=== PATIENT | female | born 1955 | race Caucasian/White ===

== ENCOUNTER 2019-05-02 06:05 | Emergency (ER) | payer MEDICARE, SELFPAY ==
[2019-05-02 06:10] VITALS: BP 160/81; PULSE 80; RESP 17; TEMP 36.4; O2SAT 98; BMI 39.9
--- NOTE | 2019-05-02 06:16 | ED.BACK ---
HPI - Back Pain/Injury General Chief Complaint: Extremity Injury, Lower Stated Complaint: bad sciatic pain down left leg cant sit, stand Time Seen by Provider: 05/02/19 06:15 Source: patient and family () Mode of arrival: Ambulatory Limitations: no limitations History of Present Illness HPI Narrative: This is a 63-year-old female comes to the emergency department with complaint of sciatica. Patient states that she has had sciatic in the past she has had about a week of symptoms that have been worsening but the last 24 hours have been significantly worse than her typical. She states particularly painful in the dimple for buttock on the left and radiating down her leg although the pain decreases as it transmits down her leg. She has occasionally had some numbness and tingling she denies any weakness. She denies any numbness or tingling currently. No loss of bowel or bladder control. She states she does have some thoracic back pain typically and some lower back pain but this is more in the buttock region. Patient states painful to sit on that area and movement is painful as well. She has not had any fevers or chills. She denies any chest pain shortness of breath, no nausea or vomiting. Patient denies any loss of bowel or bladder control. She tried an aspirin around midnight and some topical CBD cream. Patient states this has not been helpful. She states she has been on steroids in the past but would prefer to avoid them as ?everyone she knows turns into diabetics when they are on them.? She took omeprazole for GERD, denies any other medications. Denies any prior back surgeries. She states codeine makes her sick. She does have a primary care physician but forgets her name. She is accompanied by her . Related Data Previous Rx's Medication Instructions Recorded diazepam [Valium] 10 mg PO TID PRN 1 Days #14 tab 05/02/19 meloxicam [Mobic] 7.5 mg PO BID PRN #10 tab 05/02/19 oxycodone-acetaminophen [Percocet] 1 tab PO Q6H PRN #7 tab 05/02/19 Allergies Allergy/AdvReac Type Severity Reaction Status Date / Time codeine AdvReac Verified 05/02/19 06:14 Review of Systems Review of Systems ROS Unobtainable: All systems reviewed & are unremarkable except as noted in HPI and below Patient History Social History Smoking Status: Never smoker Exam Narrative Exam Narrative: GENERAL: Alert and oriented x three, obese, well-appearing elderly female in moderate distress HEENT: Head normocephalic, atraumatic, EOMI, pupils reactive, face symmetric, moist mucous membranes NECK: Supple, full range of motion CARDIOVASCULAR: Regular rate and rhythm without murmurs, rubs or gallops. RESPIRATORY: Breath sounds equal bilaterally, no wheezes rales or rhonchi. ABDOMEN: Soft, nontender. Normoactive bowel sounds all 4 quadrants. No guarding or rebound, rigidity, no mass : No CVA tenderness BACK: No cervical, thoracic or lumbar vertebral point tenderness. Patient is tender in the left piriformis region in particular. Patient has decreased range of motion. Patient's gait is antalgic. Rectal exam is deferred. Muscle strength is 5/5 in lower extremities, DTRs are 2/4 and lower extremities. Dorsalis pedis and tibialis pulses are 2+ and lower extremities. Sensation is intact in the lower extremities. Patient has increased discomfort with flexion of the hip. EXTREMITIES: Normal range of motion, no clubbing or edema. Neurovascularly intact NEUROLOGICAL: Cranial nerves II through XII grossly intact. Moving all extremities SKIN: Warm, dry, no petechiae, no rashes or lesions. Initial Vital Signs Initial Vital Signs: Vital Signs Temperature 97.6 F 05/02/19 06:10 Pulse Rate 80 05/02/19 06:10 Respiratory Rate 17 05/02/19 06:10 Blood Pressure 160/81 H 05/02/19 06:10 Pulse Oximetry 98 05/02/19 06:10 Course Orders Ordered: Discontinued Medications Diazepam (Valium) 10 mg PO NOW ONE Stop: 05/02/19 06:25 Last Admin: 05/02/19 06:34 Dose: 10 mg Documented by: MMCFARL Ketorolac Tromethamine (Toradol) 30 mg IM NOW ONE Stop: 05/02/19 06:25 Last Admin: 05/02/19 06:33 Dose: 30 mg Documented by: MMCFARL Oxycodone/Acetaminophen (Percocet 5/325) 1 tab PO NOW ONE Stop: 05/02/19 07:07 Last Admin: 05/02/19 07:39 Dose: 1 tab Documented by: RSTONE Vital Signs Vital signs: Vital Signs - 8 hr 05/02/19 06:10 Temperature 97.6 F Pulse Rate 80 Respiratory Rate 17 Blood Pressure 160/81 H Pulse Oximetry 98 MDM - Back Pain/Injury MDM Narrative Medical decision making narrative: Patient states she has had chronic ongoing issues and she has had imaging of her spine in the past which was told that she had arthritic changes and would likely develop worsening symptoms over time. Was given Toradol and Valium and on recheck patient was asleep. Has improvement but still fairly uncomfortable with movement. Patient given percocet po. Discussed would likely benefit from steroids but patient defers. Discharge Plan Departure Patient Disposition: Home Clinical Impression: Sciatica Qualifiers: Laterality: left Qualified Code(s): M54.32 - Sciatica, left side Discharge Date/Time: 05/02/19 08:04 Instructions: DI for Sciatica Activity Restrictions/Additional Instructions: Follow-up with your physician in the next week for recheck and possibly additional imaging. Take pain medication as prescribed, this medication can make you sleepy do not drive, perform hazardous activities or make any major decisions while taking it. Return to the ER for fevers greater 100.4 F, rapidly worsening back pain, loss of bowel or bladder control, new weakness, numbness or inability to lift or move her leg or other new or concerning symptoms. Prescriptions: New diazepam [Valium] 10 mg tablet 10 mg PO TID PRN (Reason: muscle spasm) 1 Days Qty: 14 RF: 0 oxycodone-acetaminophen [Percocet] 5-325 mg tablet 1 tab PO Q6H PRN (Reason: pain) Qty: 7 RF: 0 meloxicam [Mobic] 7.5 mg tablet 7.5 mg PO BID PRN (Reason: pain) Qty: 10 RF: 0 Referrals: Tom Simpson MD [Primary Care Provider] -
[2019-05-02] MEDS: KETOROLAC 60 MG/2 ML VIAL 30 MG IM (06:33)
[2019-05-02] MEDS: diazePAM 5 MG TABLET 10 MG PO (06:34)
[2019-05-02] MEDS: OXYCODONE/ACETAMINOPHEN 5/325 TABLET 1 TAB PO (07:39)
[2019-05-02 07:50] VITALS: BP 138/73; PULSE 71; RESP 17; O2SAT 100
== END 2019-05-02 08:04 | disposition home or self-care (01) ==
PROVIDERS: Emergency Provider Emergency Medicine; Family Provider Family Medicine; PCP Family Medicine
DX: M54.32 Sciatica, left side (principal)
CPT/HCPCS: 96372; 99283; J1885

== ENCOUNTER → 2019-07-10 10:10 | Outpatient (CLI) | payer MEDICARE, SELFPAY ==
--- NOTE | 2019-07-10 10:17 | DI.RAD.S_ITS ---
PROCEDURE: XR LUMBAR SPINE 2-3V INDICATIONS: Back Pain TECHNIQUE: 3 views of the lumbar spine were acquired. COMPARISON: None. FINDINGS: Bones: 5 [id number] vertebrae are present. There is trace L1-L2 and L2-L3 retrolisthesis. No vertebral body compression fractures. No suspicious bony lesions. Mild L1-L2, L2-L3, L3-L4, L4-L5 and L5-S1 degenerative disc disease. Mild L4-L5 and L5-S1 facet arthropathy. Soft tissues: Overlying bowel gas pattern is normal. No suspicious soft tissue calcifications. IMPRESSION: 1. Multilevel degenerative disease. 2. Multilevel facet arthropathy. 3. No fracture. No acute osseous lesion. If symptoms and/or clinical suspicion for pathology persists, evaluation with MRI may be helpful for further assessment. Dictated by: Ines Muniz MD, PhD on 07/10/2019 at 11:18 Approved by: Ines Muniz MD, PhD on 07/10/2019 at 11:19
== END ==
PROVIDERS: Family Provider Family Medicine; PCP Family Medicine; Referring Provider Family Medicine; Visit Provider Family Medicine
DX: M54.9 Dorsalgia, unspecified (principal); M51.36 Other intervertebral disc degeneration, lumbar region; M51.37 Other intervertebral disc degeneration, lumbosacral region; M47.816 Spondylosis without myelopathy or radiculopathy, lumbar region; M47.817 Spondylosis without myelopathy or radiculopathy, lumbosacral region; G89.29 Other chronic pain
CPT/HCPCS: 72100

== ENCOUNTER 2019-09-21 13:00 | Outpatient (RCR) | payer MEDICARE, SELFPAY ==
--- NOTE | 2019-09-02 14:09 | PT.OIE ---
Current Diagnoses Lumbago with sciatica, unspecified side (09/02/19) Past Medical History (Last Reviewed 07/14/19 @ 12:35 by Georges Riley DO) Anemia (Inactive ~2004) Ankle pain (Inactive ~1973) Chicken pox (Resolved) Chronic back pain (Chronic ~1979) Gastric ulcer (Acute) Hearing loss (Chronic ~1999) Knee pain (Chronic) Measles (Resolved) Mumps (Resolved) Peptic ulcer disease (Acute) Shoulder pain (Inactive ~1989) Vision disorder (Chronic) Past Surgical History (Last Updated 05/24/19 @ 18:33 by Haven Corona) Anesthesia (Resolved) History of oral surgery (Resolved) History of tonsillectomy (Resolved ~1960) History of tubal ligation (Resolved ~1978) Visit Care Team Role Provider Type Georges Riley DO Attending Provider Physician Primary Care Provider Referring Provider Specialty: Family Practice Address: [address] [place] [address] Email: [email or web address] Physical Therapy Initial Evaluation PT-OP-A Visit Information Start: 09/01/19 14:07 Freq: Status: Active Protocol: Document 09/02/19 12:18 MB (Rec: 09/02/19 12:39 MB [id number]) Out-Patient Physical Therapy Visit Information Visit Information Visit Type Initial Evaluation Visit Note [employer] HMD Medicare Advantage Visit Start Time 12:18 Visit Stop Time 13:00 Total Visit Minutes 42 Visit Number 1 Evaluation Information Evaluation Date 09/02/19 PT-OP-B Current Condition Start: 09/01/19 14:07 Freq: Status: Active Protocol: Document 09/02/19 12:18 MB (Rec: 09/02/19 12:39 MB [id number]) Current Condition History of Current Condition Onset Date 05/01/2019 Current Complaints Numbness down the back of her left leg from SI are to foot History of Current Condition On 05/01/2019, pt had severe pain in her left LB and SI area and down the back of her left leg to foot. Pt states that she now does not have a lot of pain but now has numbness in the same area . Pt states that she walks funnier. She is back to gardening. She feels like she needs to be more active. Pt reports history of pain all over. Pt reports 1-2/10 pain in B knees anterior. lateral and posterior areas, left scapula, down the back of the left leg. Pt reports that she worked on her feet on cement in a [employer] and fell off horses in the past. Pt states that she picked up the front of her 's truck in April to help get the truck in the right place and then went to sit at a movie for 2.5 hours. The next day, she had a lot of pain. She had a similar event last year that eventually got better. Her dog has occ run into her left knee. Prior Treatments and Tests X-ray lumbar spine 07/10/2019: mild DDD, no fracture, multilevel facet arthropathy MRI 07/31/2019 of lumbar spine reflected similar findings per pt Treatment Goals Patient/Caregiver Goals Pt would like to keep not hurting. She would like to build up strength. She would like the numbness to go away. PT-OP-C Subjective Start: 09/01/19 14:07 Freq: Status: Active Protocol: Document 09/02/19 12:18 MB (Rec: 09/02/19 12:39 MB [id number]) OP-PT Subjective Patient Comments Patient Comments See history of current condition. Patient Questionnaires Oswestry Low Back Index Oswestry Score 12 Oswestry Impairment 20 to 39% Impaired (Score 20- 39) PT-OP-D Balance Start: 09/01/19 14:07 Freq: Status: Active Protocol: Document 09/02/19 12:18 MB (Rec: 09/02/19 14:09 MB [id number]) OP-PT Balance Assessment Sitting Balance Static Sitting Balance Ability Normal Dynamic Sitting Balance Ability Fair Sitting Balance Comments Heavy UE support when PT places pt's foot over PT's knee for proprioception testing Standing Balance Static Standing Balance Ability Normal Dynamic Standing Balance Ability Fair Standing Balance Comments Romberg EO and EC 30 sec; B SLS 5 sec Srinivasan Fall Scale Copyright Permission PT-OP-J Posture/Palpation/Skin Start: 09/01/19 14:07 Freq: Status: Active Protocol: Document 09/02/19 12:18 MB (Rec: 09/02/19 14:09 MB [id number]) Posture Evaluation Comments Posture Comments Standing posture: increased soft tissue, B LEs edematous, Dowager's hump, decreased thoracic kyphosis, increased lumbar lordosis, anterior tilt pelvis, L anterior shoulder with protracted and elevated left scapula, right iliac crest higher than the left, supinated rear foot on the right with pes planus midfoot, more arch left foot than the right. Pt reports that her left heel is completely numb. Skin Assessment Other Assessments Skin Assessment Comments B LEs edematous, left is shinier and pinker than the right. No pain with squeezing left calf and the left leg is not warmer than the right. All toes normal proprioception with testing. Numbness left leg following sciatic nerve pattern--L5-S1. PT-OP-L Special Tests Start: 09/01/19 14:07 Freq: Status: Active Protocol: Document 09/02/19 12:18 MB (Rec: 09/02/19 14:09 MB [id number]) Special Tests Lumbar Spine Special Tests Slump Comments Deferred in setting of known sciatic distribution numbness left LE PT-OP-M Strength Start: 09/01/19 14:07 Freq: Status: Active Protocol: Document 09/02/19 12:18 MB (Rec: 09/02/19 14:09 MB [id number]) Hip Strength Hip Manual Muscle Testing Left Flexion (L2) 3+ Fair+ Abduction 3 Fair Right Flexion (L2) 4 Good Abduction 3- Fair- Comments Supine Knee Strength Knee Manual Muscle Testing Left Flexion (S2) 4 Good Extension (L3) 4 Good Right Flexion (S2) 4 Good Extension (L3) 5 Normal Ankle/Foot Strength Ankle and Foot Manual Muscle Testing Left Dorsiflexion (L4) 4 Good Inversion 4 Good Eversion (S1) 4 Good Comments Toe extension 3+/5 Right Dorsiflexion (L4) 5 Normal Inversion 4 Good Eversion (S1) 4 Good Comments Toe extension 4/5 PT-OP-T Assessment and Plan Start: 09/01/19 14:07 Freq: Status: Active Protocol: Document 09/02/19 12:18 MB (Rec: 09/02/19 14:09 MB [id number]) Physical Therapy Assessment Rehab Potential Rehabilitation Potential Fair Evaluation Complexity Number of Personal Factors/Comorbidities 1-2 Number of Body Systems Impaired 1-2 Clinical Presentation at Evaluation Evolving Impairments Impairments Activity Tolerance,Balance, Edema,Gait,Integument,Pain, Posture,ROM,Soft Tissue Mobility,Strength Other Impairments Musculoskeletal system, sensory/neurological system, increased body mass Goals 3 Assisted Goal (LTG) Pt will perform progressive HEP with I including pelvic realignment, balance, LE strengthening and balance exercises to decrease pain and improve function by 11/04/2019. 2 Rolling Machine Tender Goal (LTG) Pt will perform WNLs on a standardized balance test to decrease fall risk by 11/04/2019 . LTG Duration 8 weeks 1 Assisted Goal (LTG) Pt will present with improved B hip flexion, abduction MMT to at least 4/5 to improve functional transfers by 2019. LTG Duration 8 weeks Assessment Summary Assessment Pt is a 63 y/o female presenting with progressive sensory changes in left sciatic nerve distribution since lifting the front of her 's truck and then going to sit at a movie in 2019. Pt states that recent lumbar MRI revealed DDD similar to x-ray that PT can view. MRI was performed outside of this system and so PT cannot read the report. Pt is going to bring in a copy of the report in future treatment date. Pt states that she likes the numbness much better than the severe pain that she previously had in the same area. Her leg symptoms changed to numbness a month ago. She does occ get electrical shocks of pain in the left leg with activity. Two weeks ago, she fell backwards in her rock garden, landing on her tailbone in a bird bath. Pt presents with pelvic obliquities, B LE weakness, decreased balance and reports of complete numbness of her left heel. Her B LEs are edematous and her left hernandes is shiny and pinker than the right. It is the same temperature as the right and pt does not have pain with PT squeezing her calf. Pt will benefit from PT for pelvic realignment, strengthening, balance, flexibility and gait training. PT is concerned about pt reports of changing symptomology from pain to numbness. Recommend possible spinal specialist consult, possible EMG, if doctor deems appropriate. Barriers to PT include sensory changes, increased body mass and overall deconditioning. Physical Therapy Plan Frequency and Duration Frequency of Treatment 2x/Week Duration of Treatment 8 weeks Plan of Care Start Date 09/02/19 Plan of Care End Date 11/04/19 Therapeutic Interventions Therapeutic Interventions Aquatic Therapy,Balance Training,Canalithic Repositioning,Gait Training, Home Exercise Program,Manual Therapy,Neuromuscular Re- education,Patient/Caregiver Education,Self-Care/Home Management,Sensory Integration ,Soft Tissue Mobilization, Taping,Therapeutic Exercises Modalities Cold Pack/Ice Massage,Electric Stimulation,Hot Packs, Ultrasound Other Referrals/Consults Referrals/Consults Recommended Spinal specialist consult, possible EMG if referring provider deems appropriate Next Visit Focus/Plan Next Note Type Treatment Note Next Visit Plan Initiate pelvic realignment exercises
--- NOTE | 2019-09-02 14:10 | PT.OPPOC ---
Physical, Occupational & Speech Therapy At [facility] Current Diagnoses Lumbago with sciatica, unspecified side (09/02/19) Visit Care Team Role Provider Type Georges Riley DO Attending Provider Physician Primary Care Provider Referring Provider Specialty: Family Practice Address: [address] [place] [address], [facility] Email: [email or web address] Of Care PT-OP-T Assessment and Plan Start: 09/01/19 14:07 Freq: Status: Active Protocol: Document 09/02/19 12:18 MB (Rec: 09/02/19 14:09 MB [id number]) Physical Therapy Assessment Rehab Potential Rehabilitation Potential Fair Evaluation Complexity Number of Personal Factors/Comorbidities 1-2 Number of Body Systems Impaired 1-2 Clinical Presentation at Evaluation Evolving Impairments Impairments Activity Tolerance,Balance, Edema,Gait,Integument,Pain, Posture,ROM,Soft Tissue Mobility,Strength Other Impairments Musculoskeletal system, sensory/neurological system, increased body mass Goals 3 Alf Goal (LTG) Pt will perform progressive HEP with I including pelvic realignment, balance, LE strengthening and balance exercises to decrease pain and improve function by 11/04/2019. 2 Professor Of Geography Goal (LTG) Pt will perform WNLs on a standardized balance test to decrease fall risk by 11/04/2019 . LTG Duration 8 weeks 1 Professor Of Geography Goal (LTG) Pt will present with improved B hip flexion, abduction MMT to at least 4/5 to improve functional transfers by 2019. LTG Duration 8 weeks Assessment Summary Assessment Pt is a 63 y/o female presenting with progressive sensory changes in left sciatic nerve distribution since lifting the front of her 's truck and then going to sit at a movie in 2019. Pt states that recent lumbar MRI revealed DDD similar to x-ray that PT can view. MRI was performed outside of this system and so PT cannot read the report. Pt is going to bring in a copy of the report in future treatment date. Pt states that she likes the numbness much better than the severe pain that she previously had in the same area. Her leg symptoms changed to numbness a month ago. She does occ get electrical shocks of pain in the left leg with activity. Two weeks ago, she fell backwards in her rock garden, landing on her tailbone in a bird bath. Pt presents with pelvic obliquities, B LE weakness, decreased balance and reports of complete numbness of her left heel. Her B LEs are edematous and her left hernandes is shiny and pinker than the right. It is the same temperature as the right and pt does not have pain with PT squeezing her calf. Pt will benefit from PT for pelvic realignment, strengthening, balance, flexibility and gait training. PT is concerned about pt reports of changing symptomology from pain to numbness. Recommend possible spinal specialist consult, possible EMG, if doctor deems appropriate. Barriers to PT include sensory changes, increased body mass and overall deconditioning. Physical Therapy Plan Frequency and Duration Frequency of Treatment 2x/Week Duration of Treatment 8 weeks Plan of Care Start Date 09/02/19 Plan of Care End Date 11/04/19 Therapeutic Interventions Therapeutic Interventions Aquatic Therapy,Balance Training,Canalithic Repositioning,Gait Training, Home Exercise Program,Manual Therapy,Neuromuscular Re- education,Patient/Caregiver Education,Self-Care/Home Management,Sensory Integration ,Soft Tissue Mobilization, Taping,Therapeutic Exercises Modalities Cold Pack/Ice Massage,Electric Stimulation,Hot Packs, Ultrasound Other Referrals/Consults Referrals/Consults Recommended Spinal specialist consult, possible EMG if referring provider deems appropriate Next Visit Focus/Plan Next Note Type Treatment Note Next Visit Plan Initiate pelvic realignment exercises Plan of Care Dates Plan of Care Start Date 09/02/19 Plan of Care End Date 11/04/19 Electronically Signed by: Ely Jacobs PT 09/02/19 0229 Please Sign and Return: I have reviewed this Plan of Care and certify that the skilled therapy services above are required to meet the patient?s needs. Physician Signature Date Printed Name and Credentials Clinical Instructor Signature Printed Name and Credentials
--- NOTE | 2019-09-07 13:52 | PT.OTN ---
Current Diagnoses Lumbago with sciatica, unspecified side (09/07/19) Physical Therapy Treatment Note PT-OP-A Visit Information Start: 09/01/19 14:07 Freq: Status: Active Protocol: Document 09/07/19 13:00 HH (Rec: 09/07/19 13:51 HH [id number]) Out-Patient Physical Therapy Visit Information Visit Information Visit Type Treatment Note Visit Start Time 13:01 Visit Stop Time 13:45 Total Visit Minutes 44 Visit Number 2 PT-OP-B Current Condition Start: 09/01/19 14:07 Freq: Status: Active Protocol: Document 09/02/19 12:18 MB (Rec: 09/02/19 12:39 MB [id number]) Current Condition History of Current Condition Onset Date 05/01/2019 Current Complaints Numbness down the back of her left leg from SI are to foot History of Current Condition On 05/01/2019, pt had severe pain in her left LB and SI area and down the back of her left leg to foot. Pt states that she now does not have a lot of pain but now has numbness in the same area . Pt states that she walks funnier. She is back to gardening. She feels like she needs to be more active. Pt reports history of pain all over. Pt reports 1-2/10 pain in B knees anterior. lateral and posterior areas, left scapula, down the back of the left leg. Pt reports that she worked on her feet on cement in a [employer] and fell off horses in the past. Pt states that she picked up the front of her 's truck in April to help get the truck in the right place and then went to sit at a movie for 2.5 hours. The next day, she had a lot of pain. She had a similar event last year that eventually got better. Her dog has occ run into her left knee. Prior Treatments and Tests X-ray lumbar spine 07/10/2019: mild DDD, no fracture, multilevel facet arthropathy MRI 07/31/2019 of lumbar spine reflected similar findings per pt Treatment Goals Patient/Caregiver Goals Pt would like to keep not hurting. She would like to build up strength. She would like the numbness to go away. PT-OP-C Subjective Start: 09/01/19 14:07 Freq: Status: Active Protocol: Document 09/07/19 13:00 HH (Rec: 09/07/19 13:51 HH [id number]) OP-PT Subjective Patient Comments Patient Comments I mostly have numbness but i usually dont have much pain. Patient Reported Progress Same PT-OP-D Balance Start: 09/01/19 14:07 Freq: Status: Active Protocol: Document 09/02/19 12:18 MB (Rec: 09/02/19 14:09 MB [id number]) OP-PT Balance Assessment Sitting Balance Static Sitting Balance Ability Normal Dynamic Sitting Balance Ability Fair Sitting Balance Comments Heavy UE support when PT places pt's foot over PT's knee for proprioception testing Standing Balance Static Standing Balance Ability Normal Dynamic Standing Balance Ability Fair Standing Balance Comments Romberg EO and EC 30 sec; B SLS 5 sec Srinivasan Fall Scale Copyright Permission PT-OP-J Posture/Palpation/Skin Start: 09/01/19 14:07 Freq: Status: Active Protocol: Document 09/02/19 12:18 MB (Rec: 09/02/19 14:09 MB [id number]) Posture Evaluation Comments Posture Comments Standing posture: increased soft tissue, B LEs edematous, Dowager's hump, decreased thoracic kyphosis, increased lumbar lordosis, anterior tilt pelvis, L anterior shoulder with protracted and elevated left scapula, right iliac crest higher than the left, supinated rear foot on the right with pes planus midfoot, more arch left foot than the right. Pt reports that her left heel is completely numb. Skin Assessment Other Assessments Skin Assessment Comments B LEs edematous, left is shinier and pinker than the right. No pain with squeezing left calf and the left leg is not warmer than the right. All toes normal proprioception with testing. Numbness left leg following sciatic nerve pattern--L5-S1. PT-OP-L Special Tests Start: 09/01/19 14:07 Freq: Status: Active Protocol: Document 09/02/19 12:18 MB (Rec: 09/02/19 14:09 MB [id number]) Special Tests Lumbar Spine Special Tests Slump Comments Deferred in setting of known sciatic distribution numbness left LE PT-OP-M Strength Start: 09/01/19 14:07 Freq: Status: Active Protocol: Document 09/02/19 12:18 MB (Rec: 09/02/19 14:09 MB [id number]) Hip Strength Hip Manual Muscle Testing Left Flexion (L2) 3+ Fair+ Abduction 3 Fair Right Flexion (L2) 4 Good Abduction 3- Fair- Comments Supine Knee Strength Knee Manual Muscle Testing Left Flexion (S2) 4 Good Extension (L3) 4 Good Right Flexion (S2) 4 Good Extension (L3) 5 Normal Ankle/Foot Strength Ankle and Foot Manual Muscle Testing Left Dorsiflexion (L4) 4 Good Inversion 4 Good Eversion (S1) 4 Good Comments Toe extension 3+/5 Right Dorsiflexion (L4) 5 Normal Inversion 4 Good Eversion (S1) 4 Good Comments Toe extension 4/5 PT-OP-Q Treatments Start: 09/01/19 14:07 Freq: Status: Active Protocol: Document 09/07/19 13:00 (Rec: 09/07/19 13:51 [id number]) Therapeutic Exercises Supine Exercises tennis ball release Supine Exercise Name at L piriformis and lumbar paraspinals Side left Reps/Minutes 4 mins Comments for HEP nerve glide Supine Exercise Name sciatic nerve glide with knee extension Side left Reps/Minutes 8 x2 Comments with DF bridging Side bilateral Reps/Minutes 8 x2 Comments cues on PPT, for HEP supine pelvic tilt Side bilateral Reps/Minutes 12 x2 Comments cues on PPT, for HEP Manual Therapy Treatment Soft Tissue Mobilization SIJ and L4-L5 Body Location facet joint regions Mobilization Type Sustained Pressure,Trigger Point Release Intensity/Depth Deep Body Position Sidelying Comments increased numbness on lateral side of L thigh noted. piriformis Body Location L Mobilization Type Sustained Pressure,Trigger Point Release Intensity/Depth Deep Body Position Sidelying Comments increased numbness on lateral side of L thigh noted. Manual Traction distraction Details long axis distraction at L hip Body Position Supine Reps/Duration 10 secs hold x8 PT-OP-T Assessment and Plan Start: 09/01/19 14:07 Freq: Status: Active Protocol: Document 09/07/19 13:00 (Rec: 09/07/19 13:51 [id number]) Physical Therapy Assessment Goals 3 Senior Care Goal (LTG) Pt will perform progressive HEP with I including pelvic realignment, balance, LE strengthening and balance exercises to decrease pain and improve function by 11/04/2019. 2 Student Life Vice President Goal (LTG) Pt will perform WNLs on a standardized balance test to decrease fall risk by 11/04/2019 . LTG Duration 8 weeks 1 Senior Care Goal (LTG) Pt will present with improved B hip flexion, abduction MMT to at least 4/5 to improve functional transfers by 2019. LTG Duration 8 weeks Assessment Summary Assessment Pt numbness on LLE increased with STM on piriformis, SIJ and L L4-L5 region which possibly indicates increased neural pressure from muscular tension. Added tennis ball release, pelvic tilt and nerve glide. Physical Therapy Plan Next Visit Focus/Plan Next Note Type Treatment Note Next Visit Plan Initiate pelvic realignment exercises
--- NOTE | 2019-09-10 13:06 | PT.OTN ---
Current Diagnoses Lumbago with sciatica, unspecified side (09/10/19) Physical Therapy Treatment Note PT-OP-A Visit Information Start: 09/01/19 14:07 Freq: Status: Active Protocol: Document 09/10/19 12:27 MB (Rec: 09/10/19 13:05 MB [id number]) Out-Patient Physical Therapy Visit Information Visit Information Visit Type Treatment Note Visit Start Time 12:27 Visit Stop Time 13:05 Total Visit Minutes 38 Visit Number 3 PT-OP-B Current Condition Start: 09/01/19 14:07 Freq: Status: Active Protocol: Document 09/02/19 12:18 MB (Rec: 09/02/19 12:39 MB [id number]) Current Condition History of Current Condition Onset Date 05/01/2019 Current Complaints Numbness down the back of her left leg from SI are to foot History of Current Condition On 05/01/2019, pt had severe pain in her left LB and SI area and down the back of her left leg to foot. Pt states that she now does not have a lot of pain but now has numbness in the same area . Pt states that she walks funnier. She is back to gardening. She feels like she needs to be more active. Pt reports history of pain all over. Pt reports 1-2/10 pain in B knees anterior. lateral and posterior areas, left scapula, down the back of the left leg. Pt reports that she worked on her feet on cement in a [employer] and fell off horses in the past. Pt states that she picked up the front of her 's truck in April to help get the truck in the right place and then went to sit at a movie for 2.5 hours. The next day, she had a lot of pain. She had a similar event last year that eventually got better. Her dog has occ run into her left knee. Prior Treatments and Tests X-ray lumbar spine 07/10/2019: mild DDD, no fracture, multilevel facet arthropathy MRI 07/31/2019 of lumbar spine reflected similar findings per pt Treatment Goals Patient/Caregiver Goals Pt would like to keep not hurting. She would like to build up strength. She would like the numbness to go away. PT-OP-C Subjective Start: 09/01/19 14:07 Freq: Status: Active Protocol: Document 09/10/19 12:27 MB (Rec: 09/10/19 13:05 MB [id number]) OP-PT Subjective Patient Comments Patient Comments Pt has trouble getting on an off the floor for exercises. PT-OP-D Balance Start: 09/01/19 14:07 Freq: Status: Active Protocol: Document 09/02/19 12:18 MB (Rec: 09/02/19 14:09 MB [id number]) OP-PT Balance Assessment Sitting Balance Static Sitting Balance Ability Normal Dynamic Sitting Balance Ability Fair Sitting Balance Comments Heavy UE support when PT places pt's foot over PT's knee for proprioception testing Standing Balance Static Standing Balance Ability Normal Dynamic Standing Balance Ability Fair Standing Balance Comments Romberg EO and EC 30 sec; B SLS 5 sec Srinivasan Fall Scale Copyright Permission PT-OP-J Posture/Palpation/Skin Start: 09/01/19 14:07 Freq: Status: Active Protocol: Document 09/02/19 12:18 MB (Rec: 09/02/19 14:09 MB [id number]) Posture Evaluation Comments Posture Comments Standing posture: increased soft tissue, B LEs edematous, Dowager's hump, decreased thoracic kyphosis, increased lumbar lordosis, anterior tilt pelvis, L anterior shoulder with protracted and elevated left scapula, right iliac crest higher than the left, supinated rear foot on the right with pes planus midfoot, more arch left foot than the right. Pt reports that her left heel is completely numb. Skin Assessment Other Assessments Skin Assessment Comments B LEs edematous, left is shinier and pinker than the right. No pain with squeezing left calf and the left leg is not warmer than the right. All toes normal proprioception with testing. Numbness left leg following sciatic nerve pattern--L5-S1. PT-OP-L Special Tests Start: 09/01/19 14:07 Freq: Status: Active Protocol: Document 09/02/19 12:18 MB (Rec: 09/02/19 14:09 MB [id number]) Special Tests Lumbar Spine Special Tests Slump Comments Deferred in setting of known sciatic distribution numbness left LE PT-OP-M Strength Start: 09/01/19 14:07 Freq: Status: Active Protocol: Document 09/02/19 12:18 MB (Rec: 07/01/20 14:09 MB [id number]) Hip Strength Hip Manual Muscle Testing Left Flexion (L2) 3+ Fair+ Abduction 3 Fair Right Flexion (L2) 4 Good Abduction 3- Fair- Comments Supine Knee Strength Knee Manual Muscle Testing Left Flexion (S2) 4 Good Extension (L3) 4 Good Right Flexion (S2) 4 Good Extension (L3) 5 Normal Ankle/Foot Strength Ankle and Foot Manual Muscle Testing Left Dorsiflexion (L4) 4 Good Inversion 4 Good Eversion (S1) 4 Good Comments Toe extension 3+/5 Right Dorsiflexion (L4) 5 Normal Inversion 4 Good Eversion (S1) 4 Good Comments Toe extension 4/5 PT-OP-Q Treatments Start: 09/01/19 14:07 Freq: Status: Active Protocol: Document 09/10/19 12:27 MB (Rec: 09/10/19 13:05 MB [id number]) Therapeutic Exercises Supine Exercises Pelvic realignment exercises Comments 5 reps all three, 3 sec hold each tennis ball release Comments D/c d/t intensity bridging Comments Hold off on bridge supine pelvic tilt Comments 10 reps and pt demonstrates I Standing Exercises Racquet ball massage against wall Comments Glutes, TFL, rotators against wall PT-OP-T Assessment and Plan Start: 09/01/19 14:07 Freq: Status: Active Protocol: Document 09/10/19 12:27 MB (Rec: 09/10/19 13:05 MB [id number]) Physical Therapy Assessment Rehab Potential Rehabilitation Potential Fair Evaluation Complexity Number of Personal Factors/Comorbidities 1-2 Number of Body Systems Impaired 1-2 Clinical Presentation at Evaluation Evolving Impairments Impairments Activity Tolerance,Balance, Edema,Gait,Integument,Pain, Posture,ROM,Soft Tissue Mobility,Strength Other Impairments Musculoskeletal system, sensory/neurological system, increased body mass Goals 3 Shelter Goal (LTG) Pt will perform progressive HEP with I including pelvic realignment, balance, LE strengthening and balance exercises to decrease pain and improve function by 11/04/2019. 2 Special Education Curriculum Specialist Goal (LTG) Pt will perform WNLs on a standardized balance test to decrease fall risk by 11/04/2019 . LTG Duration 8 weeks 1 Special Education Curriculum Specialist Goal (LTG) Pt will present with improved B hip flexion, abduction MMT to at least 4/5 to improve functional transfers by 2019. LTG Duration 8 weeks Assessment Summary Assessment D/cd tennis ball massage in hook lying and change for against the wall. D/cd bridge currently. Added self-massage against wall and pelvic realignment exercises. Physical Therapy Plan Frequency and Duration Frequency of Treatment 2x/Week Duration of Treatment 8 weeks Plan of Care Start Date 09/02/19 Plan of Care End Date 11/04/19 Therapeutic Interventions Therapeutic Interventions Aquatic Therapy,Balance Training,Canalithic Repositioning,Gait Training, Home Exercise Program,Manual Therapy,Neuromuscular Re- education,Patient/Caregiver Education,Self-Care/Home Management,Sensory Integration ,Soft Tissue Mobilization, Taping,Therapeutic Exercises Modalities Cold Pack/Ice Massage,Electric Stimulation,Hot Packs, Ultrasound Other Referrals/Consults Referrals/Consults Recommended Spinal specialist consult, possible EMG if referring provider deems appropriate Next Visit Focus/Plan Next Note Type Treatment Note Next Visit Plan Review the three pelvic realignment exercises and progress abdominal drawing in and core progression in hook lying. Defer bridge currently.
--- NOTE | 2019-09-14 11:17 | PT.OTN ---
Current Diagnoses Lumbago with sciatica, unspecified side (09/14/19) Physical Therapy Treatment Note PT-OP-A Visit Information Start: 09/01/19 14:07 Freq: Status: Active Protocol: Document 09/14/19 10:33 HH (Rec: 09/14/19 11:17 HH [id number]) Out-Patient Physical Therapy Visit Information Visit Information Visit Type Treatment Note Visit Start Time 10:32 Visit Stop Time 11:15 Total Visit Minutes 43 Visit Number 4 PT-OP-B Current Condition Start: 09/01/19 14:07 Freq: Status: Active Protocol: Document 09/02/19 12:18 MB (Rec: 09/02/19 12:39 MB [id number]) Current Condition History of Current Condition Onset Date 05/01/2019 Current Complaints Numbness down the back of her left leg from SI are to foot History of Current Condition On 05/01/2019, pt had severe pain in her left LB and SI area and down the back of her left leg to foot. Pt states that she now does not have a lot of pain but now has numbness in the same area . Pt states that she walks funnier. She is back to gardening. She feels like she needs to be more active. Pt reports history of pain all over. Pt reports 1-2/10 pain in B knees anterior. lateral and posterior areas, left scapula, down the back of the left leg. Pt reports that she worked on her feet on cement in a [employer] and fell off horses in the past. Pt states that she picked up the front of her 's truck in April to help get the truck in the right place and then went to sit at a movie for 2.5 hours. The next day, she had a lot of pain. She had a similar event last year that eventually got better. Her dog has occ run into her left knee. Prior Treatments and Tests X-ray lumbar spine 07/10/2019: mild DDD, no fracture, multilevel facet arthropathy MRI 07/31/2019 of lumbar spine reflected similar findings per pt Treatment Goals Patient/Caregiver Goals Pt would like to keep not hurting. She would like to build up strength. She would like the numbness to go away. PT-OP-C Subjective Start: 09/01/19 14:07 Freq: Status: Active Protocol: Document 09/14/19 10:33 HH (Rec: 09/14/19 11:17 HH [id number]) OP-PT Subjective Patient Comments Patient Comments I felt back pain on R side on Saturday and i dont know why. Im also not too sure if tingling has been getting better. Sometimes i felt like it. PT-OP-D Balance Start: 09/01/19 14:07 Freq: Status: Active Protocol: Document 09/02/19 12:18 MB (Rec: 09/02/19 14:09 MB [id number]) OP-PT Balance Assessment Sitting Balance Static Sitting Balance Ability Normal Dynamic Sitting Balance Ability Fair Sitting Balance Comments Heavy UE support when PT places pt's foot over PT's knee for proprioception testing Standing Balance Static Standing Balance Ability Normal Dynamic Standing Balance Ability Fair Standing Balance Comments Romberg EO and EC 30 sec; B SLS 5 sec Srinivasan Fall Scale Copyright Permission PT-OP-J Posture/Palpation/Skin Start: 09/01/19 14:07 Freq: Status: Active Protocol: Document 09/02/19 12:18 MB (Rec: 09/02/19 14:09 MB [id number]) Posture Evaluation Comments Posture Comments Standing posture: increased soft tissue, B LEs edematous, Dowager's hump, decreased thoracic kyphosis, increased lumbar lordosis, anterior tilt pelvis, L anterior shoulder with protracted and elevated left scapula, right iliac crest higher than the left, supinated rear foot on the right with pes planus midfoot, more arch left foot than the right. Pt reports that her left heel is completely numb. Skin Assessment Other Assessments Skin Assessment Comments B LEs edematous, left is shinier and pinker than the right. No pain with squeezing left calf and the left leg is not warmer than the right. All toes normal proprioception with testing. Numbness left leg following sciatic nerve pattern--L5-S1. PT-OP-L Special Tests Start: 09/01/19 14:07 Freq: Status: Active Protocol: Document 09/02/19 12:18 MB (Rec: 09/02/19 14:09 MB [id number]) Special Tests Lumbar Spine Special Tests Slump Comments Deferred in setting of known sciatic distribution numbness left LE PT-OP-M Strength Start: 09/01/19 14:07 Freq: Status: Active Protocol: Document 09/02/19 12:18 MB (Rec: 09/02/19 14:09 MB [id number]) Hip Strength Hip Manual Muscle Testing Left Flexion (L2) 3+ Fair+ Abduction 3 Fair Right Flexion (L2) 4 Good Abduction 3- Fair- Comments Supine Knee Strength Knee Manual Muscle Testing Left Flexion (S2) 4 Good Extension (L3) 4 Good Right Flexion (S2) 4 Good Extension (L3) 5 Normal Ankle/Foot Strength Ankle and Foot Manual Muscle Testing Left Dorsiflexion (L4) 4 Good Inversion 4 Good Eversion (S1) 4 Good Comments Toe extension 3+/5 Right Dorsiflexion (L4) 5 Normal Inversion 4 Good Eversion (S1) 4 Good Comments Toe extension 4/5 PT-OP-Q Treatments Start: 09/01/19 14:07 Freq: Status: Active Protocol: Document 09/14/19 10:33 HH (Rec: 09/14/19 11:17 HH [id number]) Cardio Equipment Recumbent Stepper (Sci-Fit) Duration (Minutes) 5 Resistance 1 Therapeutic Exercises Supine Exercises LTR Supine Exercise Name cues on avoid lumbar rotation Side bilateral Reps/Minutes 8 x2 supine ER Supine Exercise Name hip ER Side bilateral Equipment Used yellow band at knees Reps/Minutes 12 x 2 Comments cues on gluteal engagement Pelvic realignment exercises Equipment Used ball between thighs Comments 5 reps all three, 3 sec hold each nerve glide Supine Exercise Name sciatic nerve glide with knee extension Side left Reps/Minutes 8 x2 Comments with DF supine pelvic tilt Supine Exercise Name focus on PPT Comments 10 reps and pt demonstrates I Sidelying Exercises clamshell Side bilateral Equipment Used yellow band on knees Reps/Minutes 8 x2 Comments R LE is significantly easier to pt. Manual Therapy Treatment Soft Tissue Mobilization SIJ and L4-L5 Body Location facet joint regions Mobilization Type Sustained Pressure,Trigger Point Release Intensity/Depth Deep Body Position Sidelying Comments increased numbness on lateral side of L thigh noted. piriformis Body Location L Mobilization Type Sustained Pressure,Trigger Point Release Intensity/Depth Deep Body Position Sidelying Comments increased numbness on lateral side of L thigh noted. Manual Traction distraction Details long axis distraction at L hip Body Position Supine Reps/Duration 10 secs hold x8 Comments pt reports of relief during distraction. PT-OP-T Assessment and Plan Start: 09/01/19 14:07 Freq: Status: Active Protocol: Document 09/14/19 10:33 (Rec: 09/14/19 11:17 [id number]) Physical Therapy Assessment Goals 3 Penitentiary Goal (LTG) Pt will perform progressive HEP with I including pelvic realignment, balance, LE strengthening and balance exercises to decrease pain and improve function by 11/04/2019. 2 Penitentiary Goal (LTG) Pt will perform WNLs on a standardized balance test to decrease fall risk by 11/04/2019 . LTG Duration 8 weeks 1 Penitentiary Goal (LTG) Pt will present with improved B hip flexion, abduction MMT to at least 4/5 to improve functional transfers by 2019. LTG Duration 8 weeks Assessment Summary Assessment Pt caleb session very with the focus on hip and lumbar mobility, along with hip stabilizers strengthening. Pt does have a significant +ve trendelenburg sign on L during stance phase which indicate insufficient hip stability. Will assess post session tolerance next visit. Might add hip strengthening ex to her HEP. Physical Therapy Plan Next Visit Focus/Plan Next Note Type Treatment Note Next Visit Plan Will assess post session tolerance next visit. Might add hip strengthening ex to her HEP. hip mobility and piriformis stretch and hip stabilization ex.
--- NOTE | 2019-09-16 13:00 | PT.OTN ---
Current Diagnoses Lumbago with sciatica, unspecified side (09/16/19) Physical Therapy Treatment Note PT-OP-A Visit Information Start: 09/01/19 14:07 Freq: Status: Active Protocol: Document 09/16/19 12:12 MB (Rec: 09/16/19 12:59 MB [id number]) Out-Patient Physical Therapy Visit Information Visit Information Visit Type Treatment Note Visit Start Time 12:15 Visit Stop Time 12:57 Total Visit Minutes 42 Visit Number 5 PT-OP-B Current Condition Start: 09/01/19 14:07 Freq: Status: Active Protocol: Document 09/02/19 12:18 MB (Rec: 09/02/19 12:39 MB [id number]) Current Condition History of Current Condition Onset Date 05/01/2019 Current Complaints Numbness down the back of her left leg from SI are to foot History of Current Condition On 05/01/2019, pt had severe pain in her left LB and SI area and down the back of her left leg to foot. Pt states that she now does not have a lot of pain but now has numbness in the same area . Pt states that she walks funnier. She is back to gardening. She feels like she needs to be more active. Pt reports history of pain all over. Pt reports 1-2/10 pain in B knees anterior. lateral and posterior areas, left scapula, down the back of the left leg. Pt reports that she worked on her feet on cement in a [employer] and fell off horses in the past. Pt states that she picked up the front of her 's truck in April to help get the truck in the right place and then went to sit at a movie for 2.5 hours. The next day, she had a lot of pain. She had a similar event last year that eventually got better. Her dog has occ run into her left knee. Prior Treatments and Tests X-ray lumbar spine 07/10/2019: mild DDD, no fracture, multilevel facet arthropathy MRI 07/31/2019 of lumbar spine reflected similar findings per pt Treatment Goals Patient/Caregiver Goals Pt would like to keep not hurting. She would like to build up strength. She would like the numbness to go away. PT-OP-C Subjective Start: 09/01/19 14:07 Freq: Status: Active Protocol: Document 09/16/19 12:12 MB (Rec: 09/16/19 12:59 MB [id number]) OP-PT Subjective Patient Comments Patient Comments Pt states again that she had a little twinge on the right side of her back on Saturday. PT-OP-D Balance Start: 09/01/19 14:07 Freq: Status: Active Protocol: Document 09/02/19 12:18 MB (Rec: 09/02/19 14:09 MB [id number]) OP-PT Balance Assessment Sitting Balance Static Sitting Balance Ability Normal Dynamic Sitting Balance Ability Fair Sitting Balance Comments Heavy UE support when PT places pt's foot over PT's knee for proprioception testing Standing Balance Static Standing Balance Ability Normal Dynamic Standing Balance Ability Fair Standing Balance Comments Romberg EO and EC 30 sec; B SLS 5 sec Srinivasan Fall Scale Copyright Permission PT-OP-J Posture/Palpation/Skin Start: 09/01/19 14:07 Freq: Status: Active Protocol: Document 09/02/19 12:18 MB (Rec: 09/02/19 14:09 MB [id number]) Posture Evaluation Comments Posture Comments Standing posture: increased soft tissue, B LEs edematous, Dowager's hump, decreased thoracic kyphosis, increased lumbar lordosis, anterior tilt pelvis, L anterior shoulder with protracted and elevated left scapula, right iliac crest higher than the left, supinated rear foot on the right with pes planus midfoot, more arch left foot than the right. Pt reports that her left heel is completely numb. Skin Assessment Other Assessments Skin Assessment Comments B LEs edematous, left is shinier and pinker than the right. No pain with squeezing left calf and the left leg is not warmer than the right. All toes normal proprioception with testing. Numbness left leg following sciatic nerve pattern--L5-S1. PT-OP-L Special Tests Start: 09/01/19 14:07 Freq: Status: Active Protocol: Document 09/02/19 12:18 MB (Rec: 09/02/19 14:09 MB [id number]) Special Tests Lumbar Spine Special Tests Slump Comments Deferred in setting of known sciatic distribution numbness left LE PT-OP-M Strength Start: 09/01/19 14:07 Freq: Status: Active Protocol: Document 09/02/19 12:18 MB (Rec: 09/02/19 14:09 MB [id number]) Hip Strength Hip Manual Muscle Testing Left Flexion (L2) 3+ Fair+ Abduction 3 Fair Right Flexion (L2) 4 Good Abduction 3- Fair- Comments Supine Knee Strength Knee Manual Muscle Testing Left Flexion (S2) 4 Good Extension (L3) 4 Good Right Flexion (S2) 4 Good Extension (L3) 5 Normal Ankle/Foot Strength Ankle and Foot Manual Muscle Testing Left Dorsiflexion (L4) 4 Good Inversion 4 Good Eversion (S1) 4 Good Comments Toe extension 3+/5 Right Dorsiflexion (L4) 5 Normal Inversion 4 Good Eversion (S1) 4 Good Comments Toe extension 4/5 PT-OP-Q Treatments Start: 09/01/19 14:07 Freq: Status: Active Protocol: Document 09/16/19 12:12 MB (Rec: 09/16/19 12:59 MB [id number]) Therapeutic Exercises Supine Exercises Abdominal drawing in Reps/Minutes 10 reps slowly Comments Abdominal drawing in, progress lumbar rotation, HS, knee fall out, may Pelvic realignment exercises Comments Cues for form, 5 reps and 3 sec hold all exercises Standing Exercises Pect, hip flexor, QL stretches in doorway Comments Cues, performed B and 30 sec hold for each PT-OP-T Assessment and Plan Start: 09/01/19 14:07 Freq: Status: Active Protocol: Document 09/16/19 12:12 MB (Rec: 09/16/19 12:59 MB [id number]) Physical Therapy Assessment Rehab Potential Rehabilitation Potential Fair Evaluation Complexity Number of Personal Factors/Comorbidities 1-2 Number of Body Systems Impaired 1-2 Clinical Presentation at Evaluation Evolving Impairments Impairments Activity Tolerance,Balance, Edema,Gait,Integument,Pain, Posture,ROM,Soft Tissue Mobility,Strength Other Impairments Musculoskeletal system, sensory/neurological system, increased body mass Goals 3 [employer] Goal (LTG) Pt will perform progressive HEP with I including pelvic realignment, balance, LE strengthening and balance exercises to decrease pain and improve function by 11/04/2019. 2 [facility] Goal (LTG) Pt will perform WNLs on a standardized balance test to decrease fall risk by 11/04/2019 . LTG Duration 8 weeks 1 [employer] Goal (LTG) Pt will present with improved B hip flexion, abduction MMT to at least 4/5 to improve functional transfers by 2019. LTG Duration 8 weeks Assessment Summary Assessment Progressed core strengthening today. Added pect and hip flexor and standing QL stretch in doorway. Consider gentle lumbar extension and Child's pose. Physical Therapy Plan Frequency and Duration Frequency of Treatment 2x/Week Duration of Treatment 8 weeks Plan of Care Start Date 09/02/19 Plan of Care End Date 11/04/19 Therapeutic Interventions Therapeutic Interventions Aquatic Therapy,Balance Training,Canalithic Repositioning,Gait Training, Home Exercise Program,Manual Therapy,Neuromuscular Re- education,Patient/Caregiver Education,Self-Care/Home Management,Sensory Integration ,Soft Tissue Mobilization, Taping,Therapeutic Exercises Modalities Cold Pack/Ice Massage,Electric Stimulation,Hot Packs, Ultrasound Other Referrals/Consults Referrals/Consults Recommended Spinal specialist consult, possible EMG if referring provider deems appropriate Next Visit Focus/Plan Next Note Type Treatment Note Next Visit Plan Progress QL, spine extension stretches--gentle and monitor response. Consider Child's pose walking hands to the sides and standing extension
--- NOTE | 2019-09-21 13:43 | PT.OTN ---
Current Diagnoses Lumbago with sciatica, unspecified side (09/21/19) Physical Therapy Treatment Note PT-OP-A Visit Information Start: 09/01/19 14:07 Freq: Status: Active Protocol: Document 09/21/19 13:01 HH (Rec: 09/21/19 13:43 HH [id number]) Out-Patient Physical Therapy Visit Information Visit Information Visit Type Discharge Summary Visit Start Time 13:01 Visit Stop Time 13:45 Total Visit Minutes 44 Visit Number 6 PT-OP-B Current Condition Start: 09/01/19 14:07 Freq: Status: Active Protocol: Document 09/02/19 12:18 MB (Rec: 09/02/19 12:39 MB [id number]) Current Condition History of Current Condition Onset Date 05/01/2019 Current Complaints Numbness down the back of her left leg from SI are to foot History of Current Condition On 05/01/2019, pt had severe pain in her left LB and SI area and down the back of her left leg to foot. Pt states that she now does not have a lot of pain but now has numbness in the same area . Pt states that she walks funnier. She is back to gardening. She feels like she needs to be more active. Pt reports history of pain all over. Pt reports 1-2/10 pain in B knees anterior. lateral and posterior areas, left scapula, down the back of the left leg. Pt reports that she worked on her feet on cement in a [employer] and fell off horses in the past. Pt states that she picked up the front of her 's truck in April to help get the truck in the right place and then went to sit at a movie for 2.5 hours. The next day, she had a lot of pain. She had a similar event last year that eventually got better. Her dog has occ run into her left knee. Prior Treatments and Tests X-ray lumbar spine 07/10/2019: mild DDD, no fracture, multilevel facet arthropathy MRI 07/31/2019 of lumbar spine reflected similar findings per pt Treatment Goals Patient/Caregiver Goals Pt would like to keep not hurting. She would like to build up strength. She would like the numbness to go away. PT-OP-C Subjective Start: 09/01/19 14:07 Freq: Status: Active Protocol: Document 09/21/19 13:01 (Rec: 09/21/19 13:43 [id number]) OP-PT Subjective Patient Comments Patient Comments My tingling and numbness to the L foot come and go and it was my very first time to be able to move my L pinky toe last night. But my R back still bothers me here and there. I think i can be done with therapy as long as i do my exercises. Patient Reported Progress Improving PT-OP-D Balance Start: 09/01/19 14:07 Freq: Status: Active Protocol: Document 09/02/19 12:18 MB (Rec: 09/02/19 14:09 MB [id number]) OP-PT Balance Assessment Sitting Balance Static Sitting Balance Ability Normal Dynamic Sitting Balance Ability Fair Sitting Balance Comments Heavy UE support when PT places pt's foot over PT's knee for proprioception testing Standing Balance Static Standing Balance Ability Normal Dynamic Standing Balance Ability Fair Standing Balance Comments Romberg EO and EC 30 sec; B SLS 5 sec Srinivasan Fall Scale Copyright Permission PT-OP-J Posture/Palpation/Skin Start: 09/01/19 14:07 Freq: Status: Active Protocol: Document 09/02/19 12:18 MB (Rec: 09/02/19 14:09 MB [id number]) Posture Evaluation Comments Posture Comments Standing posture: increased soft tissue, B LEs edematous, Dowager's hump, decreased thoracic kyphosis, increased lumbar lordosis, anterior tilt pelvis, L anterior shoulder with protracted and elevated left scapula, right iliac crest higher than the left, supinated rear foot on the right with pes planus midfoot, more arch left foot than the right. Pt reports that her left heel is completely numb. Skin Assessment Other Assessments Skin Assessment Comments B LEs edematous, left is shinier and pinker than the right. No pain with squeezing left calf and the left leg is not warmer than the right. All toes normal proprioception with testing. Numbness left leg following sciatic nerve pattern--L5-S1. PT-OP-L Special Tests Start: 09/01/19 14:07 Freq: Status: Active Protocol: Document 09/02/19 12:18 MB (Rec: 09/02/19 14:09 MB [id number]) Special Tests Lumbar Spine Special Tests Slump Comments Deferred in setting of known sciatic distribution numbness left LE PT-OP-M Strength Start: 09/01/19 14:07 Freq: Status: Active Protocol: Document 09/02/19 12:18 MB (Rec: 09/02/19 14:09 MB [id number]) Hip Strength Hip Manual Muscle Testing Left Flexion (L2) 3+ Fair+ Abduction 3 Fair Right Flexion (L2) 4 Good Abduction 3- Fair- Comments Supine Knee Strength Knee Manual Muscle Testing Left Flexion (S2) 4 Good Extension (L3) 4 Good Right Flexion (S2) 4 Good Extension (L3) 5 Normal Ankle/Foot Strength Ankle and Foot Manual Muscle Testing Left Dorsiflexion (L4) 4 Good Inversion 4 Good Eversion (S1) 4 Good Comments Toe extension 3+/5 Right Dorsiflexion (L4) 5 Normal Inversion 4 Good Eversion (S1) 4 Good Comments Toe extension 4/5 PT-OP-Q Treatments Start: 09/01/19 14:07 Freq: Status: Active Protocol: Document 09/21/19 13:01 HH (Rec: 09/21/19 13:43 HH [id number]) Therapeutic Exercises Supine Exercises supine ER Supine Exercise Name hip ER Side bilateral Equipment Used yellow band at knees Reps/Minutes 12 x 2 Comments cues on gluteal engagement bridging Side bilateral Equipment Used yellow brand at knees Reps/Minutes 10 x2 supine pelvic tilt Supine Exercise Name focus on PPT Comments 10 reps and pt demonstrates I Sidelying Exercises clamshell Side bilateral Reps/Minutes 12x2 Comments R LE is significantly easier to pt. Standing Exercises standing hip ext Standing Exercise Name followed by abd Side bilateral Equipment Used with support Reps/Minutes 8 x2 Comments for HEP Manual Therapy Treatment Soft Tissue Mobilization SIJ and L4-L5 Body Location facet joint regions Mobilization Type Sustained Pressure,Trigger Point Release Intensity/Depth Deep Body Position Sidelying Comments increased numbness on lateral side of L thigh noted. piriformis Body Location L Mobilization Type Sustained Pressure,Trigger Point Release Intensity/Depth Deep Body Position Sidelying Comments increased numbness on lateral side of L thigh noted. Manual Traction distraction Details long axis distraction at L hip Body Position Supine Reps/Duration 10 secs hold x8 Comments pt reports of relief during distraction. PT-OP-T Assessment and Plan Start: 09/01/19 14:07 Freq: Status: Active Protocol: Document 09/21/19 13:01 HH (Rec: 09/21/19 13:43 [id number]) Physical Therapy Assessment Goals 3 [facility] Goal (LTG) Pt will perform progressive HEP with I including pelvic realignment, balance, LE strengthening and balance exercises to decrease pain and improve function by 11/04/2019. 2 [facility] Goal (LTG) Pt will perform WNLs on a standardized balance test to decrease fall risk by 11/04/2019 . LTG Duration 8 weeks 1 [facility] Goal (LTG) Pt will present with improved B hip flexion, abduction MMT to at least 4/5 to improve functional transfers by 2019. LTG Duration 8 weeks Assessment Summary Assessment Pt stated she has improved motor control on L pinky since IE. She also reported she has been compliant to HEP and requested to be d/c from therapy . Added hip stabilization and strengthening ex specifically for L glute. Physical Therapy Plan Discharge Physical Therapy Discharge Reasons Patient Request Discharge Comments see A&P
== END 2019-09-23 10:43 ==
LOC: PHYS 13:00
PROVIDERS: PCP Family Medicine; Referring Provider Family Medicine; Visit Provider Family Medicine
DX: M54.40 Lumbago with sciatica, unspecified side (principal)
CPT/HCPCS: 97110; 97140; 97161

== ENCOUNTER → 2023-02-14 10:57 | Outpatient (CLI) | payer MEDICARE, SELFPAY ==
--- NOTE | 2023-02-14 11:03 | DI.RAD.S_ITS ---
PROCEDURE: XR FOOT LT MIN 3V INDICATIONS: left foot pain TECHNIQUE: 3 views of the foot were acquired. COMPARISON: None. FINDINGS: Bones: No fractures or dislocations. No suspicious bony lesions. Soft tissues: No tibiotalar joint effusion. Achilles tendon appears normal. IMPRESSION: No acute fracture. No osseous lesion. If symptoms and/or clinical suspicion for pathology persist, further assessment with repeat, or advanced imaging (e.g., CT, MRI, or bone scan) may be helpful for further assessment. Dictated by: Susan Tom M.D. on 02/14/2023 at 11:22 Approved by: Susan Tom M.D. on 02/14/2023 at 11:23
== END ==
PROVIDERS: PCP Family Medicine; Referring Provider Nurse Practitioner Family; Visit Provider Nurse Practitioner Family
DX: M79.672 Pain in left foot (principal)
CPT/HCPCS: 73630